=== PATIENT | female | born 1940 | race Caucasian/White ===

== ENCOUNTER 2016-07-26 13:35 | Emergency (ER) | payer MEDICARE, OTHER ==
[~2016-07-26] VITALS: Ht 154.9 cm; Wt 75.0 kg
[~2016-07-26 13:35] MED LIST: ASPI-973 PO; ATOR20TA65 PO; CALC-975 PO; CHOL10008 PO; GABA-502 PO; HYG25 PO; LISI10TA PO; MULT-1073 PO
--- NOTE | 2016-07-26 13:37 | ED.REPORT ---
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 Daughter reports that the patient was standing up off the commode and fell forward onto the ground. She denies head trauma, and LOC. History is limited due to underlying brain mets. Nursing Notes Stated Complaint: GLF Nursing Notes Reviewed: Yes Allergies: Coded Allergies: No Known Allergies (Verified Allergy, Unknown, 07/26/16) Scheduled Aspirin (Aspirin) 81 Mg Tablet 81 MG PO DAILY Atorvastatin Calcium (Atorvastatin Calcium) 20 Mg Tablet 20 MG PO DAILY Calcium Carbonate/Vitamin D3 (Calcium 600 + Vit D3 Caplet) 600 Mg-800 Tablet 1 EACH PO BID Chlorthalidone (Chlorthalidone) 25 Mg Tablet 25 MG PO DAILY Cholecalciferol (Vitamin D3) (Vitamin D3) 1,000 Unit Tab.chew 1,000 UNIT PO DAILY Gabapentin (Gabapentin) 300 Mg Capsule 300 MG PO BID Lisinopril (Lisinopril) 10 Mg Tablet 10 MG PO DAILY Multivits-Min/FA/Lycopene/Lut (Centrum Silver Tablet) 1 Each Tablet 1 EACH PO DAILY General Time Seen by Provider: 13:36 Chief Complaint Other (Left Shoulder Pain/Injury) Hx Obtained From: Patient Arrived By: Ambulance Onset Occurred: Just prior to arrival Symptom Duration: Since onset Caused by: Fall while (Getting off of the toilet) Context: Occurred at: Home Location: : Shoulder left Quality: Painful Severity: Current: Moderate Severity: Maximum: Moderate Past Medical History Past Medical History Reports: Cancer (breast with mets to skeletal system, brain, liver), Hyperlipidemia, Hypertension Reports: Thyroid disease Past Surgical History Right breast biopsy Partial mastectomy Portacath placement Reports: Hysterectomy Smoking History Former Smoker Social History Other Social History: Good social support Review of Systems Musculoskeletal: Reports: Back pain, Joint pain (Left Shoulder), Denies: Extremity pain, Lumbar pain, Neck pain, Thoracic pain Neurologic: Denies: Headache, Syncope Complete sys rev & neg: except as marked. Physical Exam Initial Vital Signs Vital Signs (First) Date Time Temp Pulse Resp B/P Pulse Ox O2 Delivery O2 Flow Rate FiO2 07/26/16 13:42 36.2 92 17 129/68 100 Room Air Initial VS: Reviewed Skin: Warm, Dry, No cyanosis General/Constitutional: Awake, Alert, Well developed, Well nourished Head / Eyes: Atraumatic, Normocephalic Neck: Atraumatic, Supple, Full range of motion, No swelling, Non-tender, No midline vertebral tend, No masses, No crepitus, No JVD, No tracheal deviation Respiratory / Chest: Atraumatic, Breath sounds NL, Breath sounds = bilat, No respiratory distress, No rales, No rhonchi, No wheezing, No stridor, No chest tenderness, No chest wall deformity, No crepitus Cardiovascular: Heart rate NL, Regular rhythm, Heart sounds NL, Cap refill not delayed, Peripheral circulation NL Abdomen: Soft, No guarding, No rebound, No distention Tenderness/Guarding/Rebound: Positive: Tender diffuse (mild) Back: Atraumatic, Inspection NL, Non-tender, No midline vertebral tend, No paraspinal tenderness, No CVA tenderness Neurologic: Oriented X3, Speech NL, No motor deficits, No sensory deficits ENT: Atraumatic, Airway patent, Mucous membranes moist, Pharynx NL, Mastoid area NL, Gums/dentition NL Lower Extremity / Pelvis / MS: Full range of motion, Neurologic intact, Vascular intact Right Hip: Positive: ROM reduced... (due to pain), Tenderness present... Interpretation & Diagnostics X-Ray Chest Interpretation Chest Xray Interpretation: IMPRESSION: No acute disease or interval change Dictated by: Blaze Raman M.D. on 07/26/2016 at 15:04 Approved by: Blaze Raman M.D. on 07/26/2016 at 15:05 View: Portable, 1 view Interpretation / Wet Read by: Interpret - Radiologist X-Ray Interpretation Xray Interpretation: IMPRESSION: No acute fracture. Widespread osseous metastatic disease Dictated by: Blaze Raman M.D. on 07/26/2016 at 15:05 Approved by: Blaze Raman M.D. on 07/26/2016 at 15:06 X-Ray Ordered: Pelvis Interpretation / Wet Read by: Interpret - Radiologist Xray Interpretation: IMPRESSION: No acute fracture. Sclerotic lesion in the proximal humerus presumably osseous metastatic disease Dictated by: Blaze Raman M.D. on 07/26/2016 at 15:06 Approved by: Blaze Raman M.D. on 07/26/2016 at 15:08 X-Ray Ordered: Shoulder left Interpretation / Wet Read by: Interpret - Radiologist Re-Eval/Medical Decision Med Decision/Clinical Course Patient is a 76-year-old female with widely metastatic breast cancer who presents with worsening generalized weakness and falling off the toilet today. She did not strike her head or lose consciousness and is not on any blood thinners. Through the emergency department the patient is afebrile with stable vital signs. She is at her baseline mental status and is unable to provide any significant history. Patient is accompanied by her daughter who witnessed the fall. Daughter states that she is not acutely worried about her mother but is concerned about her ability to care for self at home. The daughter does not want her admitted to a long-term care facility and is able to take Tylenol for her to care for her mother and wonders if it is time to start doing this. I obtained plain films of the patient's chest pelvis and left shoulder which demonstrated widespread metastatic disease and no acute fractures. Patient remained stable and in no apparent distress. I had a long conversation with the patient's daughter and she feels comfortable bringing her mother home. 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 Patient was seen and evaluated by our health social work professor and provided with additional resources. They will call her primary care physician first thing tomorrow morning to arrange for further assistance. Patient was discharged in stable condition. Follow up and return precautions were reviewed in detail the patient's daughter who verbalized understanding and agreement with the plan. Source of Hx: Old records Re-Evaluation/Progress : Time of Eval: 14:47 Re-Evaluation/Progress Note: Patient's daughter is now present, at bedside. Discussed patient case with daughter and need for home health assistance. Discussed plan to discharge pending x-ray results. Daughter is amenable to the plan. Return precautions given. All other questions addressed. Counseled Regarding: Diagnosis, Lab results, Need for follow-up, When/why to return to ED Discharge & Departure Impression: Primary Impression: Fall from ground level Additional Impressions: Metastatic cancer Generalized weakness Disposition: Home Discharge Condition All VS Reviewed: Yes Condition: Stable Patient Instructions: Fall Prevention for Older Adults (GEN) Additional Instructions: Thank you for seeking care at emergency room. It is difficult for us to make definitive diagnoses in the ED but we believe that you are experiencing pain related to your fall today, and due to your previous diagnosis of metastatic cancer. You should follow-up with your primary doctor this week to discuss home health care. Use the resources given to you by our health social work professor. You should return to the ED immediately if you develop worsening weakness, falling, numbness/tingling, confusion, fever, vomiting, diarrhea, or any other concerning signs or symptoms. Thank you for letting us partake in your care today. Referrals: Glen Reno MD (PCP) Dioni[facility] Attestation Portions of this note were transcribed by Mckinley Lu. I, Dr. Tran, personally performed the history, physical exam and medical decision-making; I reviewed and confirmed the accuracy of the information in the transcribed note. Signed by: Annette Alarcon, 07/26/2016 and 15:22 copies to: Glen Reno MD, Beck O MD Jul 26, 2016 13:37 MCKINLEY LU Jul 26, 2016 13:52
[2016-07-26 13:42] VITALS: BP 129/68; PULSE 92; RESP 17; O2SAT 100
[2016-07-26 15:06] VITALS: BP 126/67; PULSE 80; RESP 16; O2SAT 100
--- NOTE | 2016-07-26 15:06 | DRSVH ---
PROCEDURE: X-RAY CHEST ONE VIEW, PORTABLE ([id number]) INDICATIONS: trauma TECHNIQUE: One view of the chest was acquired. COMPARISON: [facility], , CHEST 1VW (PORTABLE), 05/15/2014, 9:11. FINDINGS: Surgical changes and devices: Left chest port as before. Numerous surgical clips projecting in the ri ght breast Lungs and pleura: No pleural effusions or pneumothorax. Lungs are clear. Mediastinum: Mediastinal contours appear normal. Heart size is normal. Bones and chest wall: No suspicious bony lesions. Overlying soft tissues appear unremarkable. IMPRESSION: No acute disease or interval change Dictated by: Blaze Raman M.D. on 07/26/2016 at 15:04 Approved by: Blaze Raman M.D. on 07/26/2016 at 15:05
--- NOTE | 2016-07-26 15:08 | DRSVH ---
PROCEDURE: X-RAY PELVIS, ONE OR TWO VIEWS ([id number]) INDICATIONS: trauma TECHNIQUE: Single view(s) of the pelvis acquired. COMPARISON: None. FINDINGS: Bones: No fractures or dislocations. Innumerable bilateral sclerotic lesions seen throughout the bon y pelvis proximal femurs and lower lumbar spine in keeping with widespread osseous metastatic disease . Soft tissues: Visualized bowel gas pattern is normal. No suspicious soft tissue calcifications. IMPRESSION: No acute fracture. Widespread osseous metastatic disease Dictated by: Blaze Raman M.D. on 07/26/2016 at 15:05 Approved by: Blaze Raman M.D. on 07/26/2016 at 15:06
--- NOTE | 2016-07-26 15:09 | DRSVH ---
PROCEDURE: X-RAY LEFT SHOULDER, MINIMUM TWO VIEWS ([id number]) INDICATIONS: trauma TECHNIQUE: 2 views of the shoulder were acquired. COMPARISON: [facility], CR, XR PELVIS 1 OR 2VW, 07/26/2016, 13:58. FINDINGS: Bones: No fractures or dislocations. Densely sclerotic lesion in the proximal humerus Visualized rib s appear intact. Soft tissues: No suspicious soft tissue calcifications. Left chest port IMPRESSION: No acute fracture. Sclerotic lesion in the proximal humerus presumably osseous metastatic disease Dictated by: Blaze Raman M.D. on 07/26/2016 at 15:06 Approved by: Blaze Raman M.D. on 07/26/2016 at 15:08
[2016-07-26 15:37] VITALS: BP 126/67; PULSE 80; RESP 16; O2SAT 100
[2016-08-19] MEDS ORDERED: LEVO88TA4 PO (12:25)
== END 2016-07-26 15:38 | disposition home or self-care (01) ==
LOC: SED 13:35
DX: S49.92XA Unspecified injury of left shoulder and upper arm, initial encounter (principal); W18.11XA Fall from or off toilet without subsequent striking against object, initial encounter; Y93.89 Activity, other specified; Y92.002 Bathroom of unspecified non-institutional (private) residence as the place of occurrence of the external cause; Y99.8 Other external cause status; R53.1 Weakness; I10 Essential (primary) hypertension; Z85.3 Personal history of malignant neoplasm of breast; Z85.841 Personal history of malignant neoplasm of brain; Z85.05 Personal history of malignant neoplasm of liver; Z85.830 Personal history of malignant neoplasm of bone; Z79.82 Long term (current) use of aspirin; Z87.891 Personal history of nicotine dependence